=== PATIENT | male | born 1995 | race Caucasian/White ===

== ENCOUNTER 2024-07-22 18:14 | Emergency (ER) | payer MEDICAID, SELFPAY ==
--- NOTE | ~2024-07-22 | XR_ITS ---
EXAMINATION: XR THORACIC SPINE CLINICAL INFORMATION: Pain status post injury COMPARISON: None available. TECHNIQUE: 3 views of the thoracic spine were obtained. FINDINGS: There is no fracture or bone destruction seen and the vertebral alignment is normal. There is no disc space narrowing. There is no abnormality of the paraspinal soft tissues. XR/XR thoracic spine 3V IMPRESSION: Unremarkable examination. Electronically signed by: Jean-Pierre Mcdaams DO 07/22/2024 09:17 PM EDT
--- NOTE | ~2024-07-22 | XR_ITS ---
EXAMINATION: XR SHOULDER, RIGHT CLINICAL INFORMATION: Pain COMPARISON: None available. TECHNIQUE: AP external rotation, Grashey, scapular Y, and axillary views of the right shoulder. FINDINGS: The bones and soft tissues are normal. No fracture. Glenohumeral and acromioclavicular alignment is anatomic with normal joint space. No abnormal soft tissue calcifications. XR/XR shoulder RT min 2V IMPRESSION: Normal right shoulder. Electronically signed by: Jean-Pierre Mcadams DO 07/22/2024 09:15 PM EDT
--- NOTE | ~2024-07-22 | CT_ITS ---
EXAMINATION: CT CERVICAL SPINE WITHOUT CONTRAST CLINICAL INFORMATION: Pain status post seizure COMPARISON: None TECHNIQUE: Multidetector CT of the cervical spine was performed without intravenous contrast. Reformatted axial, coronal and sagittal images were reviewed. This CT examination was performed using dose optimization techniques as appropriate, variously including the following: *Automated exposure control *Adjustment of mA and/or kV according to patient size (this includes techniques or standardized protocols for targeted exams where dose is matched to indication/reason for exam; i.e. extremities or head) *Use of iterative reconstruction technique DLP: 511 mGy-cm FINDINGS: There is no fracture, malalignment or prevertebral soft tissue abnormality seen in the cervical spine. There is no abnormal widening of the predental space, separation of the lateral masses of C1 or facet joint distraction. Groundglass appearance, prominent trabeculae, and some endosteal scalloping involving the C2 articular pillar and posterior elements (right greater than left). No significant central canal or neuroforaminal stenosis. Vertebral body and intervertebral disc height are normal. The visualized portions of the brain and lung parenchyma are unremarkable. CT/CT cervical spine wo IV con IMPRESSION: 1. No acute fracture or malalignment of the cervical spine. 2. 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 Electronically signed by: Jean-Pierre Mcadams DO 07/22/2024 10:00 PM EDT
--- NOTE | 2024-07-22 18:55 | ED_ITS ---
HPI - Neck Pain/Injury General Chief Complaint: Neck Pain/Injury Stated Complaint: neck/back stiffness and pain Time Seen by Provider: 07/22/24 23:05 Source: patient Mode of arrival: ambulatory Limitations: no limitations History of Present Illness ED Provider: Dr. Garza HPI Narrative: Patient is a 29yo male with a seizure disorder who presents with neck, back and shoulder pain after having a seizure on Saturday. Patient states that he usually remembers to take his tegretol and dilantin, did not take it this morning. Related Data Previous Rx's ?Medication ?Instructions ?Recorded cyclobenzaprine 10 mg tablet 10 mg PO TID #10 tabs 07/22/24 naproxen 500 mg tablet (Naprosyn) 500 mg PO BID #20 tabs 07/22/24 Allergies Allergy/AdvReac Type Severity Reaction Status Date / Time No Known Allergies Allergy Verified 07/22/24 18:59 Review of Systems 2 Review of Systems: Yes all other systems are reviewed and are negative Neurologic: Denies Sensory deficit (Neuro) [facility] Social History Social History Advance Directives: No Advance Directives Information Provided: No Physical Exam 2 Vital Signs: Vital Signs: Last Vital Signs Temp 0 F L 07/22/24 23:41 Pulse 0 L 07/22/24 23:41 Resp 16 07/22/24 23:41 BP 0/0 L 07/22/24 23:41 Pulse Ox 0 L 07/22/24 23:41 O2 Del Method Room Air 07/22/24 22:31 BMI result Body Mass Index 28.8 Const: General: healthy appearing Nutritional Appearance: average body habitus Orientation/consciousness: oriented to person and patient oriented x3 Limitations: no limitations HEENT: Head: Yes normal to inspection Ears: external ears normal General nose exam: Normal external nose present Mouth: Normal oral and palatal mucosa present and oropharynx normal Throat: Yes posterior oropharynx normal Eyes: General: appearance normal, both eyes and all related structures Neck: Other: diffuse pain Neck: Yes normal visual inspection Chest: Chest palpation & inspection: normal inspection of the chest Resp: Auscultation: clear to auscultation bilaterally Cardio: Jugular venous distension: no JVD Rate: regular rate Rhythm: r egular rhythm Heart sounds: S1 normal heart sound present and S2 normal heart sound present GI: Inspection: Yes normal to inspection Palpation (GI): Soft to palpation, nontender and No hepatosplenomegaly present Auscultation: normal bowel sounds Back/Spine/Pelvis: Other: neck and lumbar spine tenderness decreased range of motion. Skin: General skin exam: no rashes or lesions noted Neuro: General: oriented to person and patient oriented x3 Cranial nerves: Yes CN's II-XII intact bilaterally Motor exam (neuro): 5/5 motor strength present throughout Sensory Exam: No Sensory deficit (Neuro) Extrem: General: Yes normal to inspection Psych: Appearance: grossly normal Course Course Course Narrative: This is a Rapid Medical Exam performed in triage by Karen Wallace PA-C. Full HPI, ROS and PE to be performed by primary ED provider. 29 yo Mw/pmhx epilepsy presenting to the ED c/o right sided neck pain/stiffness and R upper back/shoulder pain x yesterday. Admits had seizure on Saturday, reports compliance with antiepileptics. Last seizure about 3 months ago.. Denies hitting head during seizure per . +headache since incident. Denies vision change/loss. States takes Dilantin and oxy carbamazepine PE: +neck stiffness, + right-sided neck paraspinal reproducible tenderness and right trapezius muscle tenderness. Plan: Labs, UA, XRs & CT Reevaluation(s) Reevaluation #1: CT of neck normal, shoulder xray normal, lumbar spine normal, will start tegretol dilantin give NSAIDs and flexeril Time: 23:24 Medications Administered Discontinued Medications Generic Name Dose Route Start Last Admin Trade Name Rusty PRN Reason Stop Dose Admin Carbamazepine 200 mg 07/22/24 23:12 07/22/24 23:34 Carbamazepine 200 Mg Tablet PO 07/22/24 23:13 200 mg ONCE ONE Administration Cyclobenzaprine HCl 10 mg 07/22/24 23:17 07/22/24 23:34 Cyclobenzaprine Hcl 10 Mg Tablet PO 07/22/24 23:18 10 mg ONCE ONE Administration Ketorolac Tromethamine 60 mg 07/22/24 23:17 07/22/24 23:34 Ketorolac Tromethamine 60 Mg/2 Ml Vial IM 07/22/24 23:18 60 mg ONCE ONE Administration Phenytoin Sodium 500 mg 07/22/24 23:12 07/22/24 23:34 Phenytoin Sodium Extended 100 Mg Capsule PO 07/22/24 23:13 500 mg ONCE ONE Administration Medical Decision Making Differential Diagnosis Differential Diagnoses: The differential diagnosis associated with the presentation includes (seizure, medication non compliance, neck strain, back strain, shoulder pain) Admission/Observation Consideration of admission/observation: Escalation of care including admission/observation considered (upon arrival admission was considered) Lab Data 07/22/24 20:00 07/22/24 20:00 Labs: Lab Results 07/22/24 Range/Units 20:00 WBC 5.5 (4.8-10.8) X10*3/uL RBC 4.51 L (4.60-5.80) X10*6/uL Hgb 14.5 (14.0-18.0) g/dl Hct 41.8 L (42.0-52.0) % MCV 92.7 (80.0-98.0) fL MCH 32.2 (27.0-33.0) pg MCHC 34.7 (31.0-36.0) g/dl RDW 12.3 (11.0-16.0) % Plt Count 200 (160-400) X10*3/uL MPV 11.5 (9.4-12.4) fL Immature Gran % (Auto) 0.2 (0.0-0.4) % Neut % (Auto) 25.5 L (45-73) % Lymph % (Auto) 63.6 H (20-40) % [place] % (Auto) 5.6 (2-11) % Eos % (Auto) 4.6 H (0-4) % Baso % (Auto) 0.5 (0-2) % Lymph # (Auto) 3.5 (1.2-4.9) X10*3/uL [place] # (Auto) 0.3 (0.1-1.2) X10*3/uL Eos # (Auto) 0.3 (0.0-0.4) X10*3/uL Baso # (Auto) 0.0 (0.0-0.2) X10*3/uL Abs Immat Gran (auto) 0.01 (0.00-0.03) X10*3/uL Absolute Neuts (auto) 1.4 L (2.0-8.3) x10*3/uL Absolute Nucleated RBC 0.000 (0.0-0.012) X10*3/uL Nucleated RBC % (auto) 0.0 (0.0-0.2) /100WBC Smear Tech's Comments VERIFIED Sodium 141 (135-145) mmol/L Potassium 3.5 (3.3-5.1) mmol/L Chloride 108 (96-108) mmol/L Carbon Dioxide 24 (22-29) mmol/L Anion Gap 13 (12-20) BUN 12 (9-16) mg/dL Creatinine 0.86 (0.5-1.4) mg/dL Estim Creat Clear Calc 154.0 Estimated GFR > 60 Random Glucose 72 (60-115) mg/dL Calcium 9.4 (8.4-10.2) mg/dL Magnesium 2.2 (1.6-2.6) mg/dL Total Bilirubin 0.6 (0.0-1.0) mg/dL Direct Bilirubin 0.2 (0.0-0.5) mg/dL AST 16 (5-37) U/L ALT 21 (0-40) U/L Alkaline Phosphatase 54 (39-117) U/L Total Protein 7.1 (6.5-8.0) g/dL Albumin 4.3 (3.5-5.0) g/dL Urine Color Yellow Urine Appearance Clear Urine pH 6.0 (5.0-9.0) Ur Specific [place] 1.025 (1.005-1.025) Urine Protein Negative (Neg-Trace) mg/dL Urine Glucose (UA) Negative (Negative) mg/dL Urine Ketones Negative (Negative) mg/dL Urine Blood Negative (Negative) Urine Nitrite Negative (Negative) Ur Leukocyte Esterase Negative (Negative) Urine Opiates Screen Not Detected (Not Detect) Ur Buprenorphine Scrn Not Detected (Not Detect) ng/mL Ur Oxycodone Screen Not Detected (Not Detect) ng/mL Urine Methadone Screen Not Detected (Not Detect) ng/mL Urine Fentanyl Screen Not Detected (Not Detect) Ur Barbiturates Screen Not Detected (Not Detect) Phenytoin < 1.8 L* (10.0-20.0) ug/mL Carbamazepine < 2.0 L* (5.0-12.0) mcg/mL Ur Phencyclidine Scrn Not Detected (Not Detect) Ur Amphetamines Screen Not Detected (Not Detect) U Benzodiazepines Scrn Not Detected (Not Detect) Urine Cocaine Screen Not Detected (Not Detect) U Marijuana (THC) Screen POSITIVE H (Not Detect) Independent Interpretation I performed an independent interpretation of an: Plain X-Ray (no fracture) and CT Scan (no fracture or subluxation) Discharge Plan Discharge Clinical Impression: Strain of neck muscle, Acute lumbar myofascial strain, Seizure disorder Patient Disposition: Home, Self-Care Instructions: Low Back Strain (ED), Acute Low Back Pain (ED), Cervical Sprain (ED), Recurrent Seizures in Adults (ED) Prescriptions: New cyclobenzaprine 10 mg tablet 10 mg PO TID Qty: 10 0RF naproxen [Naprosyn] 500 mg tablet 500 mg PO BID Qty: 20 0RF Referrals: Physician,Unknown J [Primary Care Provider] - 5 days Interventions: ED Discharge Assessment Last Done: 07/22/24 23:41 Discharge Date/Time: 07/22/24 23:43 Print Language: Kyrgyz
[2024-07-22 18:56] VITALS: BP 136/86; PULSE 77; RESP 18; TEMP 36.6; O2SAT 99; BMI 28.8
--- NOTE | 2024-07-22 19:30 | MHC.EDTECH ---
This tech called patient at [phone] to obtain labs,patient was not in the waiting room,will re-attempt
--- NOTE | 2024-07-22 19:45 | MHC.EDTECH ---
Called a second time for labs at 194,patient was not in the waiting room.
--- NOTE | 2024-07-22 20:02 | MHC.EDTECH ---
Patient brought into triage area,labs and urine obtained and sent to lab
[2024-07-22 20:15] LABS: Basophils Percent Auto 0.5 % (0-2); Eosinophils Absolute Auto 0.3 X10*3/uL (0.0-0.4); Eosinophils Percent Auto 4.6 % (0-4); Hematocrit 41.8 % (42.0-52.0); Hemoglobin 14.5 g/dl (14.0-18.0); Imm Gran Abs Auto 0.01 X10*3/uL (0.00-0.03); Imm Gran Pct Auto 0.2 % (0.0-0.4); Lymphocytes Absolute Auto 3.5 X10*3/uL (1.2-4.9); Lymphocytes Percent Auto 63.6 % (20-40); MANUAL DIFF FLAG SCAN; Mean Corpuscular HGB Conc 34.7 g/dl (31.0-36.0); Mean Corpuscular Hemoglobin 32.2 pg (27.0-33.0); Mean Corpuscular Volume 92.7 fL (80.0-98.0); Mean Platelet Volume 11.5 fL (9.4-12.4); Monocytes Absolute Auto 0.3 X10*3/uL (0.1-1.2); Monocytes Percent Auto 5.6 % (2-11); Neutrophils Absolute Auto 1.4 x10*3/uL (2.0-8.3); Neutrophils Percent Auto 25.5 % (45-73); Platelet Count 200 X10*3/uL (160-400); Red Blood Count 4.51 X10*6/uL (4.60-5.80); Red Cell Distribution Width 12.3 % (11.0-16.0); SCAN SMEAR FLAG 1; White Blood Count 5.5 X10*3/uL (4.8-10.8)
[2024-07-22 20:22] LABS: Appearance Urine Clear; Color Urine Yellow; Glucose Urine UA Negative (Negative); Leukocyte Esterase Urine Negative (Negative); Nitrite Urine Negative (Negative); Specific Gravity - Urine 1.025 (1.005-1.025); Urine Blood Negative (Negative); Urine Ketones Negative (Negative); Urine Protein Negative (Neg-Trace)
[2024-07-22 20:31] LABS: Alanine Aminotransferase 21 U/L (0-40); Albumin Level 4.3 g/dL (3.5-5.0); Alkaline Phosphatase 54 U/L (39-117); Anion Gap 13 (12-20); Aspartate Amino Transferase 16 U/L (5-37); Bilirubin Direct 0.2 mg/dL (0.0-0.5); Bilirubin Total 0.6 mg/dL (0.0-1.0); Blood Urea Nitrogen 12 mg/dL (9-16); Calcium 9.4 mg/dL (8.4-10.2); Carbon Dioxide 24 mmol/L (22-29); Chloride 108 mmol/L (96-108); Estimated Glomerular Filt Rate > 60; Glucose Random 72 mg/dL (60-115); Magnesium 2.2 mg/dL (1.6-2.6); Potassium 3.5 mmol/L (3.3-5.1); Sodium 141 mmol/L (135-145); Total Protein 7.1 g/dL (6.5-8.0)
[2024-07-22 20:32] LABS: Amphetamine Screen Urine Not Detected (Not Detect); Barbiturates, Urine Not Detected (Not Detect); Benzodiazepines Screen Urine Not Detected (Not Detect); Buprenorphine Scr Not Detected (Not Detect); Cannabinoid Screen Urine POSITIVE (Not Detect); Cocaine Screen Urine Not Detected (Not Detect); Fentanyl, urine Not Detected (Not Detect); Methadone Screen, Urine Not Detected (Not Detect); Opiate Screen Urine Not Detected (Not Detect); Oxycodone Screen Urine Not Detected (Not Detect); Phencyclidine Screen Urine Not Detected (Not Detect)
[2024-07-22 20:35] LABS: SLIDE REVIEW VERIFIED
[2024-07-22 20:38] LABS: Carbamazepine Tegretol < 2.0 mcg/mL (5.0-12.0); Phenytoin Dilantin < 1.8 ug/mL (10.0-20.0)
[2024-07-22 21:34] VITALS: BP 119/65; PULSE 64; RESP 16; TEMP 36.3; O2SAT 99
[2024-07-22 22:31] VITALS: BP 140/93; PULSE 92; RESP 16; TEMP 36.6; O2SAT 100
[2024-07-22] MEDS: Cyclobenzaprine HCl 10 MG TABLET PO (23:34)
[2024-07-22] MEDS: carBAMazepine 200 MG TABLET PO (23:34)
[2024-07-22] MEDS: Phenytoin Sodium Extended 100 MG CAPSULE 500 MG PO (23:34)
[2024-07-22] MEDS: Ketorolac Tromethamine 60 MG/2 ML VIAL IM (23:34)
[2024-07-22 23:41] VITALS: BP 0/0; PULSE 0; RESP 16; TEMP -17.7; TEMP 0; O2SAT 0
== END 2024-07-22 23:43 | disposition home or self-care (01) ==
PROVIDERS: Physician Assistant; Emergency Provider Emergency Medicine
DX: G40.909 Epilepsy, unspecified, not intractable, without status epilepticus (principal); S16.1XXA Strain of muscle, fascia and tendon at neck level, initial encounter; S39.012A Strain of muscle, fascia and tendon of lower back, initial encounter; X58.XXXA Exposure to other specified factors, initial encounter; Y93.89 Activity, other specified; Y92.9 Unspecified place or not applicable; Y99.9 Unspecified external cause status; Z79.899 Other long term (current) drug therapy
CPT/HCPCS: 36415; 72072; 72125; 73030; 80048; 80076; 80156; 80185; 80307; 81003; 83735; 85025; 96372; 99283; 99284; J1885

== ENCOUNTER 2025-03-22 13:11 | Emergency (ER) | payer MEDICAID, SELFPAY ==
--- NOTE | ~2025-03-22 | XR_ITS ---
CLINICAL HISTORY: pain Chest Radiographs, 2 views Comparison: None Findings: No cardiomegaly. Normal mediastinal contours. No pneumothorax. No opacity. No pleural effusion. Normal upper abdomen. No acute fracture. Impression: No acute findings. This document has been electronically signed by: Chantel Bhagat MD on 03/22/2025 14:40:24
[2025-03-22 13:19] VITALS: BP 136/71; PULSE 85; RESP 18; TEMP 36.3; O2SAT 98; BMI 31.5
--- NOTE | 2025-03-22 13:22 | ECG_ITS ---
Test Reason : COUGH Blood Pressure : */* mmHG Vent. Rate : 83 BPM Atrial Rate : 83 BPM P-R Int : 174 ms QRS Dur : 94 ms QT Int : 362 ms P-R-T Axes : 47 12 28 degrees QTcB Int : 425 ms Normal sinus rhythm Normal ECG No previous ECGs available Referred By: Handy Uribe Electronically Signed By: Heladio Betts
--- NOTE | 2025-03-22 13:22 | ED.GENADULT ---
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 Also complaining of pain to in area of his surgery which is worse with coughing episodes. Cough nonproductive. Denies fever, hemoptysis. Denies chest pain or palpitations. Denies recent calf pain or swelling. MD complaint: cough, abdominal pain Onset (ago): week(s) Related Data Previous Rx's ?Medication ?Instructions ?Recorded cyclobenzaprine 10 mg tablet 10 mg PO TID #10 tabs 07/22/24 naproxen 500 mg tablet (Naprosyn) 500 mg PO BID #20 tabs 07/22/24 albuterol sulfate 90 mcg/actuation 2 puff inhalation Q4-6H PRN 03/22/25 aerosol inhaler shortness of breath or wheezing #6.7 grams benzonatate 100 mg capsule 100 mg PO TID PRN cough #20 caps 03/22/25 prednisone 20 mg tablet 20 mg PO DAILY #5 tabs 03/22/25 Allergies Allergy/AdvReac Type Severity Reaction Status Date / Time No Known Allergies Allergy Verified 03/22/25 13:22 Review of Systems Review of Systems: As per HPI. Yes all other systems are reviewed and are negative Constitutional: Constitutional: Reports as per HPI [facility] Social History Social History Advance Directives: No Advance Directives Information Provided: Yes Do you have a plan to hurt others: No Plan Physical Exam ED Vital Signs: Vital Signs - 24 hr 03/22/25 13:19 03/22/25 15:05 Temperature 97.4 F 98.2 F Pulse Rate 85 70 Respiratory Rate 18 15 Blood Pressure 136/71 109/64 Pulse Oximetry 98 99 Oxygen Delivery Method Room Air Room Air BMI result Body Mass Index 31.5 Vital signs have been reviewed and appear to be correct. Blood pressure normal. Heart rate normal. Respiratory rate normal. Temperature normal. Oxygen saturation normal. Const General: cooperative, healthy appearing and no acute distress Orientation/consciousness: oriented to person, oriented to place, oriented to time and patient oriented x3 Limitations: no limitations HENLA Head: Yes normocephalic and Yes atraumatic Ears: external ears normal General nose exam: Normal external nose present Face and sinus: Yes face symmetric Mouth: oropharynx normal and moist mucous membranes Throat: Yes uvula midline Eyes Pupils: Equal, round and reactive pupils present Neck Neck: Yes normal visual inspection and Yes supple Resp Effort & Inspection: normal respiratory effort and able to speak in complete sentences Auscultation: clear to auscultation bilaterally and wheezes scattered wheezes Cardio Rate: regular rate Rhythm: regular rhythm Heart sounds: S1 normal heart sound present and S2 normal heart sound present GI Other: several small, well-healed surgical scars to abdomen Inspection: Yes scar Palpation (GI): Soft to palpation, nontender, no guarding, no hernias and No Rebound tenderness present Auscultation: normoactive bowel sounds General: Yes no CVA tenderness Back/Spine/Pelvis Back: no CVA tenderness Skin General skin exam: elasticity normal and turgor normal Neuro General: oriented to person, oriented to place, oriented to time, patient oriented x3, moves all extremities, no focal motor deficits and CN's II-XI intact bilaterally Cranial nerves: Yes Equal, round and reactive pupils present Cognition (Neuro): normal cognition Extrem General: Yes full ROM, Yes no pedal edema and Yes no calf tenderness Psych Mental Status: mental status grossly normal Affect: normal affect Thought process: Normal thought process present Course Course Course Narrative: RME, this is a rapid medical exam performed by Gerald Uribe please refer to primary provider for complete H&P- 29-year-old male past medical history significant for 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 On exam patient is awake, A+Ox3, VS WNL, afebrile, normal neurological exam without focal deficits, physical exam findings as above. Given reported symptoms and physical exam findings, initial differential includes but is not limited to viral illness, COVID, flu, RSV, asthma exacerbation, pneumonia. Unlikely complication of recent hernia repair as abdomen is soft and nontender, no palpable mass. Unlikely PE, PERC 0. Labs unremarkable. Viral serology negative. X-ray chest notable for no evidence of pneumonia. My interpretation is in agreement with the radiologist's interpretation. Discussed with patient that symptoms are likely due to viral URI. Will send prescription for prednisone, albuterol inhaler, benzonatate. Will also provide patient with a spacer as he does not have 1 at home. Advised patient to use a pillow for splinting while he is coughing to protect his abdomen. Follow up with PCP as needed. Return precautions discussed. Patient verbalized understanding of and agreement with plan. Differential Diagnosis Differential Diagnoses: The differential diagnosis associated with the presentation includes As per [facility] Admission/Observation Consideration of admission/observation: Escalation of care including admission/observation considered Patient would have been admitted to the hospital had their work up had any findings where hospital admission was appropriate and their clinical presentation warranted hospital admission. Lab Data [facility] Lab Attestation statement: I reviewed the patient's lab results. as per [facility] 03/22/25 13:50 03/22/25 13:50 Labs: Lab Results 03/22/25 Range/Units 13:50 WBC 3.9 L (4.8-10.8) X10*3/uL RBC 5.08 (4.60-5.80) X10*6/uL Hgb 15.8 (14.0-18.0) g/dl Hct 47.0 (42.0-52.0) % MCV 92.5 (80.0-98.0) fL MCH 31.1 (27.0-33.0) pg MCHC 33.6 (31.0-36.0) g/dl RDW 13.0 (11.0-16.0) % Plt Count 197 (160-400) X10*3/uL MPV 11.7 (9.4-12.4) fL Immature Gran % (Auto) 0.0 (0.0-0.4) % Neut % (Auto) 32.9 L (45-73) % Lymph % (Auto) 58.0 H (20-40) % [place] % (Auto) 3.4 (2-11) % Eos % (Auto) 5.4 H (0-4) % Baso % (Auto) 0.3 (0-2) % Lymph # (Auto) 2.3 (1.2-4.9) X10*3/uL [place] # (Auto) 0.1 (0.1-1.2) X10*3/uL Eos # (Auto) 0.2 (0.0-0.4) X10*3/uL Baso # (Auto) 0.0 (0.0-0.2) X10*3/uL Abs Immat Gran (auto) 0.00 (0.00-0.03) X10*3/uL Absolute Neuts (auto) 1.3 L (2.0-8.3) x10*3/uL Absolute Nucleated RBC 0.000 (0.0-0.012) X10*3/uL Nucleated RBC % (auto) 0.0 (0.0-0.2) /100WBC Sodium 142 (135-145) mmol/L Potassium 3.5 (3.3-5.1) mmol/L Chloride 107 (96-108) mmol/L Carbon Dioxide 25 (22-29) mmol/L Anion Gap 14 (12-20) BUN 8 L (9-16) mg/dL Creatinine 0.90 (0.5-1.4) mg/dL Estim Creat Clear Calc 149.1 Estimated GFR > 60 Random Glucose 110 (60-115) mg/dL Calcium 9.3 (8.4-10.2) mg/dL Total Bilirubin 0.5 (0.0-1.0) mg/dL AST 30 (5-37) U/L ALT 44 H (0-40) U/L Alkaline Phosphatase 66 (39-117) U/L Troponin I High Sens < 2.7 (<3.5-35.0) ng/L Total Protein 7.6 (6.5-8.0) g/dL Albumin 4.7 (3.5-5.0) g/dL Lipase 15 (8-78) U/L Influenza Type A (PCR) NEGATIVE (Negative) Influenza Type B (PCR) NEGATIVE (Negative) RSV RNA Qual (PCR) NEGATIVE (Negative) SARS-CoV-2 RNA (RT-PCR) NEGATIVE (Negative) Independent Interpretation I performed an independent interpretation of an: EKG (Normal sinus rhythm, rate 83 beats per minute, normal DE interval and QTC) and Plain X-Ray Interpretation: No evidence of pneumonia on cxr. Radiology Impression Discussion of test interpretation with radiology: I have reviewed the radiologist's reading. Radiologist Impression: Chest Radiographs, 2 views Comparison: None Findings: No cardiomegaly. Normal mediastinal contours. No pneumothorax. No opacity. No pleural effusion. Normal upper abdomen. No acute fracture. Impression: No acute findings. External Record Review External record reviewed: Inpatient record, Office record and Outpatient record Prescription Management I considered prescription management with: Other Discharge Plan Discharge Clinical Impression: Viral upper respiratory infection Patient Disposition: Home, Self-Care Instructions: Upper Respiratory Infection (DC), Viral Syndrome (ED) Additional Instructions: You were evaluated in the emergency department today for cough. Your Covid, flu, RSV tests were all negative. Your chest x-ray did not show evidence of pneumonia. Your labs were reassuring. Your symptoms are likely related to a viral illness which will resolve on its own with time and rest. You should ensure adequate fluid intake, and can use Tylenol 650 mg or ibuprofen 600 mg every 6 hours as needed for pain or discomfort. We also recommend using over the counter nasal saline spray to thin your mucous. You are being prescribed a course of prednisone which is a steroid to decrease inflammation. You are being prescribed an albuterol inhaler for shortness of breath, use this with a spacer provided to you in the emergency department. You are being prescribed benzonatate for cough. KEEP THIS MEDICATION OUT OF THE REACH OF CHILDREN. We recommend that you splint your abdomen with a pillow while coughing. Please follow-up with your primary care provider this week. Return to the emergency department if you develop chest pain, worsening shortness of breath, difficulty swallowing, fever 100.4? F or greater or any other concerning symptoms. Prescriptions: New albuterol sulfate 90 mcg/actuation HFA aerosol inhaler 2 puff inhalation Q4-6H PRN (Reason: shortness of breath or wheezing) Qty: 6.7 0RF prednisone 20 mg tablet 20 mg PO DAILY Qty: 5 0RF benzonatate 100 mg capsule 100 mg PO TID PRN (Reason: cough) Qty: 20 0RF No Action cyclobenzaprine 10 mg tablet 10 mg PO TID Qty: 10 0RF naproxen [Naprosyn] 500 mg tablet 500 mg PO BID Qty: 20 0RF Print Language: Maori
[2025-03-22 13:56] LABS: MANUAL DIFF FLAG NO
[2025-03-22 13:58] LABS: Basophils Percent Auto 0.3 % (0-2); Eosinophils Absolute Auto 0.2 X10*3/uL (0.0-0.4); Eosinophils Percent Auto 5.4 % (0-4); Hemoglobin 15.8 g/dl (14.0-18.0); Lymphocytes Absolute Auto 2.3 X10*3/uL (1.2-4.9); Mean Corpuscular HGB Conc 33.6 g/dl (31.0-36.0); Mean Corpuscular Hemoglobin 31.1 pg (27.0-33.0); Mean Corpuscular Volume 92.5 fL (80.0-98.0); Mean Platelet Volume 11.7 fL (9.4-12.4); Monocytes Absolute Auto 0.1 X10*3/uL (0.1-1.2); Monocytes Percent Auto 3.4 % (2-11); Neutrophils Absolute Auto 1.3 x10*3/uL (2.0-8.3); Neutrophils Percent Auto 32.9 % (45-73); Platelet Count 197 X10*3/uL (160-400); Red Blood Count 5.08 X10*6/uL (4.60-5.80); White Blood Count 3.9 X10*3/uL (4.8-10.8)
[2025-03-22 14:11] LABS: Alanine Aminotransferase 44 U/L (0-40); Albumin Level 4.7 g/dL (3.5-5.0); Alkaline Phosphatase 66 U/L (39-117); Anion Gap 14 (12-20); Aspartate Amino Transferase 30 U/L (5-37); Bilirubin Total 0.5 mg/dL (0.0-1.0); Blood Urea Nitrogen 8 mg/dL (9-16); Calcium 9.3 mg/dL (8.4-10.2); Carbon Dioxide 25 mmol/L (22-29); Chloride 107 mmol/L (96-108); Creatinine Clr Calc Pharmacy 149.1; Estimated Glomerular Filt Rate > 60; Glucose Random 110 mg/dL (60-115); Lipase 15 U/L (8-78); Potassium 3.5 mmol/L (3.3-5.1); Sodium 142 mmol/L (135-145); Total Protein 7.6 g/dL (6.5-8.0)
[2025-03-22 14:19] LABS: Troponin-I High Sensitivity < 2.7 ng/L (<3.5-35.0)
[2025-03-22 14:46] LABS: Influenza A PCR NEGATIVE (Negative); Influenza B PCR NEGATIVE (Negative); Resp Syncy Virus RNA Qual PCR NEGATIVE (Negative); SARS COV2 PCR INHOUSE NEGATIVE (Negative)
[2025-03-22 15:05] VITALS: BP 109/64; PULSE 70; RESP 15; TEMP 36.8; O2SAT 99
[2025-03-22 15:32] LABS: Appearance Urine Clear; Color Urine Yellow; Glucose Urine UA Negative (Negative); Leukocyte Esterase Urine Negative (Negative); Nitrite Urine Negative (Negative); Urine Blood Negative (Negative); Urine Ketones Negative (Negative); Urine Protein Negative (Neg-Trace)
[2025-03-22 15:37] LABS: Bacteria Urine None Seen (None Seen); Hyaline Casts Urine 0-2 /LPF (0-2); RBC Urine 0-2 /HPF (0-2); Squamous Epithelial Cell Urine 0-2 /HPF (0-2); WBC Urine 0-5 /HPF (0-5)
[2025-03-22 15:48] VITALS: BP 109/64; PULSE 70; RESP 15; TEMP 36.8; O2SAT 99
== END 2025-03-22 15:49 | disposition home or self-care (01) ==
PROVIDERS: Physician Assistant; Emergency Provider Emergency Medicine; PCP Dentist General Practice
DX: J06.9 Acute upper respiratory infection, unspecified (principal); R06.02 Shortness of breath; R05.9 Cough, unspecified; Z03.818 Encounter for observation for suspected exposure to other biological agents ruled out; J45.909 Unspecified asthma, uncomplicated; Z79.899 Other long term (current) drug therapy
CPT/HCPCS: 0241U; 71046; 80053; 81001; 83690; 84484; 85025; 93005; 99283; 99284

== ENCOUNTER → 2025-03-22 13:22 | Outpatient (BNV) | payer MEDICAID, SELFPAY | PROVIDERS: PCP Dentist General Practice; Visit Provider Radiology Diagnostic Radiology | DX: R07.9 Chest pain, unspecified (principal) | CPT/HCPCS: 71046 ==

== ENCOUNTER → 2025-03-22 13:22 | Outpatient (BNV) | payer MEDICAID, SELFPAY | PROVIDERS: Emergency Provider Emergency Medicine; PCP Dentist General Practice; Visit Provider Internal Medicine Cardiovascular Disease | DX: R05.9 Cough, unspecified (principal) | CPT/HCPCS: 93010 ==

== ENCOUNTER 2025-04-01 12:28 | Emergency (ER) | payer SELFPAY ==
--- NOTE | ~2025-04-01 | CT_ITS ---
EXAMINATION: CT CERVICAL SPINE WITHOUT CONTRAST CLINICAL INFORMATION: Seizure, head strike 2 days prior, neck pain. COMPARISON: 07/22/2024. TECHNIQUE: Spiral CT imaging of the cervical spine performed in axial plane without contrast. Multiplanar reformatted images were constructed from the axial data set. This CT examination was performed using dose optimization techniques as appropriate, variously including the following: *Automated exposure control *Adjustment of mA and/or kV according to patient size (this includes techniques or standardized protocols for targeted exams where dose is matched to indication/reason for exam; i.e. extremities or head) *Use of iterative reconstruction technique FINDINGS: CORONAL ALIGNMENT: -Normal. SAGITTAL ALIGNMENT: -Normal. C1-C2 AND CRANIOCERVICAL JUNCTION: -Intact and normally aligned. VERTEBRAL BODIES AND FACETS: -No fracture, compression deformity, or suspicious bone lesion, or traumatic subluxation. -Normal facet alignment bilaterally. No subluxations. DISCS: -Preserved at all levels. CENTRAL CANAL: -No evidence of high-grade central canal narrowing or large disc herniation allowing for modality limitations. PREVERTEBRAL AND PARAVERTEBRAL SOFT TISSUES: -No soft tissue swelling or edema. No abnormal fluid collection. -Normal thyroid. -Mildly prominent adenoidal soft tissues, consistent with reactive etiology. -Mild reactive appearing lymphadenopathy in the anterior and posterior cervical chains. LUNG APICES: -Clear bilaterally. CT/CT cervical spine wo IV con IMPRESSION: 1. No CT evidence of acute cervical spine fracture or injury. Electronically signed by: Jair Ortiz MD 04/01/2025 03:29 PM EDT
--- NOTE | ~2025-04-01 | CT_ITS ---
EXAMINATION: CT HEAD WITHOUT CONTRAST CLINICAL INFORMATION: Seizure. Head strike. COMPARISON: None available. TECHNIQUE: Contiguous axial imaging was performed from the skull base to vertex without intravenous administration of contrast. This CT examination was performed using dose optimization techniques as appropriate, variously including the following: *Automated exposure control *Adjustment of mA and/or kV according to patient size (this includes techniques or standardized protocols for targeted exams where dose is matched to indication/reason for exam; i.e. extremities or head) *Use of iterative reconstruction technique FINDINGS: There is no evidence of intracranial hemorrhage or extra-axial fluid collection. There is no mass effect, or edema. No CT evidence of acute territorial infarct. Ventricles, sulci, and cisterns are normal in size and configuration for patient age. No hydrocephalus. No midline shift. Negative hyperdense MCA sign. Negative insular ribbon sign. No significant white matter abnormality. Normal pituitary. Globes and orbital contents image normally. No extracranial soft tissue abnormalities. The paranasal sinuses, mastoid air cells, and tympanic cavities are normally aerated. No suspicious bony abnormalities. There are no acute fractures evident. CT/CT head/brain wo IV con IMPRESSION: No acute intracranial abnormality. No fracture evident. Electronically signed by: Jair Ortiz MD 04/01/2025 03:24 PM EDT
--- NOTE | ~2025-04-01 | XR_ITS ---
EXAMINATION: XR SHOULDER, RIGHT CLINICAL INFORMATION: Fall/seizure 2 days ago COMPARISON: 07/22/2024. TECHNIQUE: AP external rotation, Grashey, scapular Y, and axillary views of the right shoulder. FINDINGS: Normal bone mineralization. No fracture, dislocation, or suspicious bone lesion. Normal alignment. The glenohumeral joint is normal. The AC joint is normal. There is a type II acromion. No undersurface spurring. The subacromial space is preserved. Remainder of the soft tissue and bony structures appear normal. XR/XR shoulder RT min 2V IMPRESSION: Normal right shoulder. Electronically signed by: Jair Ortiz MD 04/01/2025 01:47 PM EDT
[2025-04-01 12:48] VITALS: BP 124/91; PULSE 95; RESP 18; TEMP 36.8; O2SAT 96; BMI 28.9
--- NOTE | 2025-04-01 12:49 | ED_ITS ---
HPI - Seizure General Chief Complaint: General Medical Stated Complaint: Recent seizures, neck/back discomfort Time Seen by Provider: 04/01/25 15:57 Source: patient Mode of arrival: ambulatory Limitations: no limitations History of Present Illness ED Provider: Dr. Yao Mcgowan HPI Narrative: 29-year-old male with a history of seizures who presents emergency department for evaluation of neck and right shoulder pain after having a seizure 2 days prior. 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 You need to sign up for his insurance and lost his coverage . Because of this, he has tried to stretch out his anti seizure medication, oxcarbamazepine by reducing use dose. He states that he was seizure free for year however 2 days prior he had a seizure which caused him to strike his head and right shoulder. Since that time he has had severe pain in his right shoulder which is worse with movement as well as moderate right-sided neck pain which is worse with movement as well. He is also complaining of headache, chills but no fever, nonproductive cough, myalgias and arthralgias. The patient has been taking ibuprofen and Ultracet with no improvement his pain. Patient states that he can re-enroll in his insurance at the end of the month but does not have enough money to afford refilling his prescription for his antiseizure medications. Related Data Previous Rx's ?Medication ?Instructions ?Recorded cyclobenzaprine 10 mg tablet 10 mg PO TID #10 tabs 07/22/24 naproxen 500 mg tablet (Naprosyn) 500 mg PO BID #20 tabs 07/22/24 albuterol sulfate 90 mcg/actuation 2 puff inhalation Q4-6H PRN 03/22/25 aerosol inhaler shortness of breath or wheezing #6.7 grams benzonatate 100 mg capsule 100 mg PO TID PRN cough #20 caps 03/22/25 prednisone 20 mg tablet 20 mg PO DAILY #5 tabs 03/22/25 cyclobenzaprine 10 mg tablet 10 mg PO TID PRN pain, muscle 04/01/25 spasm #15 tabs oxcarbazepine 150 mg tablet 150 mg PO DAILY #30 tabs 04/01/25 oxycodone 5 mg tablet 5 mg PO Q4H PRN pain #12 tabs 04/01/25 Allergies Allergy/AdvReac Type Severity Reaction Status Date / Time No Known Allergies Allergy Verified 04/01/25 12:53 Review of Systems 2 Review of Systems: Yes all other systems are reviewed and are negative [facility] Social History Social History Unable to assess alcohol history related to: Unknown Use of substances other than those prescribed or required for medical reasons: Unknown Advance Directives: No Advance Directives Information Provided: Yes Physical Exam 2 Vital Signs: Vital Signs: Last Vital Signs Temp 98.5 F 04/01/25 17:35 Pulse 80 04/01/25 17:35 Resp 18 04/01/25 17:35 BP 121/59 L 04/01/25 17:35 Pulse Ox 99 04/01/25 17:35 O2 Del Method Room Air 04/01/25 17:35 BMI result Body Mass Index 28.9 Vital signs were normal Exam: General: Awake, alert in no distress Head: Normocephalic, atraumatic EENT: PERRL, Lids normal, sclera normal, conjunctiva normal, nose normal , ears normal, throat without erythema or exudates Neck: Supple, no adenopathy, tenderness palpation of the right trapezius muscle, no point tenderness palpation over the cervical vertebrae Lung: breath sounds symmetric, no wheezing, rales or rhonchi Chest: symmetric movement, nontender Heart: regular rate and rhythm, normal S1, S2 no murmurs or rubs Abdomen: soft, non-tender, nondistended, normal bowel sounds Back: no vertebral tenderness, no CVAT Extremities: no deformities, moves all extremities symmetrically, patient does have tenderness palpation of his right deltoid muscle with full range of motion of his shoulder Neuro: Awake, alert, oriented, normal speech, cranial nerves intact, moves all extremities symmetrically Psych: Pleasant, cooperative Course Course Course Narrative: This is a Rapid Medical Exam performed in triage by Karen Wallace PA-C. Full HPI, ROS and PE to be performed by primary ED provider. 29 yo M w/PMHx epilepsy presenting to the ED c/o seizure 2 night ago - was standing and fell +HS, now c/o R sided head pain/R neck/back pain x yesterday. denies N/V. Admits to taking less than Rx of his seizure meds for about 3wks. (Has been cutting in half to make Rx last longer - having issues with health insurance) PE: ambulating with steady gait, no focal deficits, ROM to neck limited secondary to pain. Plan: EKG, labs, UA, Head/C-spine CT, x-ray Medications Administered Discontinued Medications Generic Name Dose Route Start Last Admin Trade Name Rusty PRN Reason Stop Dose Admin Ketorolac Tromethamine 30 mg 04/01/25 16:49 04/01/25 16:59 Ketorolac Tromethamine 15 Mg/Ml Vial IVPUSH 04/01/25 16:50 30 mg ONCE STA Administration Oxycodone HCl 10 mg 04/01/25 16:49 04/01/25 17:08 Oxycodone Hcl Immed Release 5 Mg Tablet PO 04/01/25 16:50 10 mg ONCE ONE Administration Medical Decision Making Medical Decision Making [facility] Narrative: 29-year-old male with a history of seizures who presents emergency department for evaluation of neck and right shoulder pain after having a seizure 2 days prior. 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 You need to sign up for his insurance and lost his coverage . Because of this, he has tried to stretch out his anti seizure medication, oxcarbamazepine by reducing use dose. He states that he was seizure free for year however 2 days prior he had a seizure which caused him to strike his head and right shoulder. Since that time he has had severe pain in his right shoulder which is worse with movement as well as moderate right-sided neck pain which is worse with movement as well. He is also complaining of headache, chills but no fever, nonproductive cough, myalgias and arthralgias. vital signs were normal. Neck exam did reveal right-sided trapezius tenderness and right shoulder revealed deltoid tenderness a full range of motion of the shoulder. Differential diagnosis: Includes but is not limited to Closed head injury, skull fracture, intracranial bleed, cervical fracture, cervical strain, right shoulder contusion, right shoulder dislocation, right shoulder separation, viral syndrome, COVID-19, influenza, RSV, bronchitis Course: my independent interpretation patient's laboratory evaluation is as follows: CBC was normal. CMP was normal. COVID-19 was positive. X-rays of the right shoulder revealed no acute findings. CT head and C-spine revealed no acute findings. The patient's neck pain and shoulder pain or consistent with musculoskeletal injury and I did discuss this patient. Patient was advised to take Tylenol ibuprofen for pain and pain not relieved by these medications he was prescribed oxycodone. He was also given prescription for cyclobenzaprine for muscle pain and spasm his neck. The patient is COVID positive, he has been vaccinated and has COVID in the past therefore I do not think that needs specific treatment. patient was given printed and verbal instructions on COVID infection and he was advised to stay from or and was given a work note. Patient was also given Rx for oxcarpazipine 150 mg pills Admission/Observation Consideration of admission/observation: Escalation of care including admission/observation considered Yes Lab Data MDM Lab Attestation statement: I reviewed the patient's lab results. 04/01/25 13:07 04/01/25 13:07 Labs: Lab Results 04/01/25 04/01/25 Range/Units 13:07 17:11 WBC 4.5 L (4.8-10.8) X10*3/uL RBC 4.96 (4.60-5.80) X10*6/uL Hgb 15.7 (14.0-18.0) g/dl Hct 45.9 (42.0-52.0) % MCV 92.5 (80.0-98.0) fL MCH 31.7 (27.0-33.0) pg MCHC 34.2 (31.0-36.0) g/dl RDW 12.9 (11.0-16.0) % Plt Count 172 (160-400) X10*3/uL MPV 12.0 (9.4-12.4) fL Immature Gran % (Auto) 0.4 (0.0-0.4) % Neut % (Auto) 57.5 (45-73) % Lymph % (Auto) 32.2 (20-40) % [place] % (Auto) 7.5 (2-11) % Eos % (Auto) 2.2 (0-4) % Baso % (Auto) 0.2 (0-2) % Lymph # (Auto) 1.5 (1.2-4.9) X10*3/uL [place] # (Auto) 0.3 (0.1-1.2) X10*3/uL Eos # (Auto) 0.1 (0.0-0.4) X10*3/uL Baso # (Auto) 0.0 (0.0-0.2) X10*3/uL Abs Immat Gran (auto) 0.02 (0.00-0.03) X10*3/uL Absolute Neuts (auto) 2.6 (2.0-8.3) x10*3/uL Absolute Nucleated RBC 0.000 (0.0-0.012) X10*3/uL Nucleated RBC % (auto) 0.0 (0.0-0.2) /100WBC Sodium 141 (135-145) mmol/L Potassium 4.6 D (3.3-5.1) mmol/L Chloride 110 H (96-108) mmol/L Carbon Dioxide 26 (22-29) mmol/L Anion Gap 10 L (12-20) BUN 13 (9-16) mg/dL Creatinine 0.92 (0.5-1.4) mg/dL Estim Creat Clear Calc 140.2 Estimated GFR > 60 Random Glucose 111 (60-115) mg/dL Calcium 9.6 (8.4-10.2) mg/dL Magnesium 1.9 (1.6-2.6) mg/dL Total Bilirubin 0.6 (0.0-1.0) mg/dL Direct Bilirubin 0.2 (0.0-0.5) mg/dL AST 28 (5-37) U/L ALT 34 (0-40) U/L Alkaline Phosphatase 66 (39-117) U/L Total Protein 7.5 (6.5-8.0) g/dL Albumin 4.7 (3.5-5.0) g/dL Urine Color Yellow Urine Appearance Clear Urine pH 5.5 (5.0-9.0) Ur Specific [place] 1.015 (1.005-1.025) Urine Protein Negative (Neg-Trace) mg/dL Urine Glucose (UA) Negative (Negative) mg/dL Urine Ketones Negative (Negative) mg/dL Urine Blood Negative (Negative) Urine Nitrite Negative (Negative) Ur Leukocyte Esterase Negative (Negative) Influenza Type A (PCR) NEGATIVE (Negative) Influenza Type B (PCR) NEGATIVE (Negative) RSV RNA Qual (PCR) NEGATIVE (Negative) SARS-CoV-2 RNA (RT-PCR) POSITIVE A (Negative) Independent Interpretation I performed an independent interpretation of an: Plain X-Ray Interpretation: x-rays right shoulder and her value is follows: No acute fracture seen Radiology Impression Discussion of test interpretation with radiology: I have reviewed the radiologist's reading. Radiologist Impression: XR shoulder RT min 2V IMPRESSION: Normal right shoulder. Electronically signed by: Jair Ortiz MD 04/01/2025 01:[address] head/brain wo IV con IMPRESSION: No acute intracranial abnormality. No fracture evident. Electronically signed by: Jair Ortiz MD 04/01/2025 03:[address] CERVICAL SPINE WITHOUT CONTRAST IMPRESSION: 1. No CT evidence of acute cervical spine fracture or injury. Electronically signed by: Jair Ortiz MD 04/01/2025 03:29 PM EDT Prescription Management I considered prescription management with: Pain Medication ( oxycodone) and Other ( anti spasmodic: cyclobenzaprine, anti seizure medication: oxcarbazipine) Chronic Conditions Patient?s care impacted by: Other ( seizures) Discharge Plan Discharge Clinical Impression: Seizure, Fall, Contusion of right shoulder, Neck muscle strain, COVID-19 Patient Disposition: Home, Self-Care Additional Instructions: Your blood work was unremarkable. The CT scan of your head and cervical spine/neck did not reveal any broken bones. The x-ray of your right shoulder revealed no broken bones. Your shoulder pain and neck pain is caused by muscle strain and bruising to the muscles of your neck and shoulder. Take ibuprofen 200 mg pills, 2 pills every 6 hours as needed for pain. Take Tylenol (acetaminophen) 500 mg pills, 2 pills every 4-6 hours as needed for pain. For pain not relieved by ibuprofen or Tylenol take oxycodone 5 mg pills, 1 pill every 4 hours as needed for pain. Do not drive or work while taking this medication since they can cause sleepiness. Oxycodone is a narcotic medication that can be addicting. If you are concerned about addiction you can ask the pharmacist for less pills or do not get this prescription filled. Take Flexeril (cyclobenzaprine) 10 mg pills, 1 pill every 6-8 hours as needed for pain or spasm. This medication will make you sleepy. Do not drive or work while taking this medication. Your COVID test was positive. You should stay home and isolate for 3 days. Follow-up with your doctor in 2 days. Please return to the emergency department if your symptoms get worse or if you develop any symptoms that are concerning to you. Please see the return to work note Prescriptions: New cyclobenzaprine 10 mg tablet 10 mg PO TID PRN (Reason: pain, muscle spasm) Qty: 15 0RF oxycodone 5 mg tablet 5 mg PO Q4H PRN (Reason: pain) Qty: 12 0RF Rx Instructions: Partial Fill upon patient request. oxcarbazepine 150 mg tablet 150 mg PO DAILY Qty: 30 0RF No Action cyclobenzaprine 10 mg tablet 10 mg PO TID Qty: 10 0RF naproxen [Naprosyn] 500 mg tablet 500 mg PO BID Qty: 20 0RF albuterol sulfate 90 mcg/actuation HFA aerosol inhaler 2 puff inhalation Q4-6H PRN (Reason: shortness of breath or wheezing) Qty: 6.7 0RF prednisone 20 mg tablet 20 mg PO DAILY Qty: 5 0RF benzonatate 100 mg capsule 100 mg PO TID PRN (Reason: cough) Qty: 20 0RF Stand Alone Forms: Work/School Release Interventions: ED Discharge Assessment Last Done: 04/01/25 17:35 Discharge Date/Time: 04/01/25 17:39 Print Language: Urdu
--- NOTE | 2025-04-01 12:52 | ECG_ITS ---
Test Reason : SEIZURES Blood Pressure : */* mmHG Vent. Rate : 88 BPM Atrial Rate : 88 BPM P-R Int : 162 ms QRS Dur : 92 ms QT Int : 330 ms P-R-T Axes : 48 4 29 degrees QTcB Int : 399 ms Normal sinus rhythm Normal ECG When compared with ECG of 22-Mar-2025 13:36, No significant change was found Referred By: Karen Wallace Electronically Signed By: SABIHA JUARES
[2025-04-01 13:16] LABS: MANUAL DIFF FLAG NO
[2025-04-01 13:18] LABS: Basophils Percent Auto 0.2 % (0-2); Eosinophils Absolute Auto 0.1 X10*3/uL (0.0-0.4); Eosinophils Percent Auto 2.2 % (0-4); Hematocrit 45.9 % (42.0-52.0); Hemoglobin 15.7 g/dl (14.0-18.0); Imm Gran Abs Auto 0.02 X10*3/uL (0.00-0.03); Imm Gran Pct Auto 0.4 % (0.0-0.4); Lymphocytes Absolute Auto 1.5 X10*3/uL (1.2-4.9); Lymphocytes Percent Auto 32.2 % (20-40); Mean Corpuscular HGB Conc 34.2 g/dl (31.0-36.0); Mean Corpuscular Hemoglobin 31.7 pg (27.0-33.0); Mean Corpuscular Volume 92.5 fL (80.0-98.0); Monocytes Absolute Auto 0.3 X10*3/uL (0.1-1.2); Monocytes Percent Auto 7.5 % (2-11); Neutrophils Absolute Auto 2.6 x10*3/uL (2.0-8.3); Neutrophils Percent Auto 57.5 % (45-73); Platelet Count 172 X10*3/uL (160-400); Red Blood Count 4.96 X10*6/uL (4.60-5.80); Red Cell Distribution Width 12.9 % (11.0-16.0); White Blood Count 4.5 X10*3/uL (4.8-10.8)
[2025-04-01 13:35] LABS: Alanine Aminotransferase 34 U/L (0-40); Albumin Level 4.7 g/dL (3.5-5.0); Alkaline Phosphatase 66 U/L (39-117); Anion Gap 10 (12-20); Aspartate Amino Transferase 28 U/L (5-37); Bilirubin Direct 0.2 mg/dL (0.0-0.5); Bilirubin Total 0.6 mg/dL (0.0-1.0); Blood Urea Nitrogen 13 mg/dL (9-16); Calcium 9.6 mg/dL (8.4-10.2); Carbon Dioxide 26 mmol/L (22-29); Chloride 110 mmol/L (96-108); Creatinine Clr Calc Pharmacy 140.2; Estimated Glomerular Filt Rate > 60; Glucose Random 111 mg/dL (60-115); Magnesium 1.9 mg/dL (1.6-2.6); Potassium 4.6 mmol/L (3.3-5.1); Sodium 141 mmol/L (135-145); Total Protein 7.5 g/dL (6.5-8.0)
[2025-04-01 14:17] LABS: Influenza A PCR NEGATIVE (Negative); Influenza B PCR NEGATIVE (Negative); Resp Syncy Virus RNA Qual PCR NEGATIVE (Negative); SARS COV2 PCR INHOUSE POSITIVE (Negative)
[2025-04-01 15:50] VITALS: BP 112/62; PULSE 77; RESP 15; TEMP 36.9; O2SAT 100
[2025-04-01] MEDS: Ketorolac Tromethamine 15 MG/ML VIAL 30 MG IVPUSH (16:59)
[2025-04-01] MEDS: oxyCODONE HCl Immed Release 5 MG TABLET 10 MG PO (17:08)
[2025-04-01 17:26] LABS: Appearance Urine Clear; Color Urine Yellow; Glucose Urine UA Negative (Negative); Leukocyte Esterase Urine Negative (Negative); Nitrite Urine Negative (Negative); PH 5.5 (5.0-9.0); Specific Gravity - Urine 1.015 (1.005-1.025); Urine Blood Negative (Negative); Urine Ketones Negative (Negative); Urine Protein Negative (Neg-Trace)
[2025-04-01 17:35] VITALS: BP 121/59; PULSE 80; RESP 18; TEMP 36.9; O2SAT 99
== END 2025-04-01 17:39 | disposition home or self-care (01) ==
PROVIDERS: Physician Assistant; Emergency Provider Emergency Medicine Emergency Medical Services; PCP Dentist General Practice
DX: U07.1 COVID-19 (principal); R56.9 Unspecified convulsions; M54.2 Cervicalgia; M54.50 Low back pain, unspecified; M25.511 Pain in right shoulder; R51.9 Headache, unspecified; R05.9 Cough, unspecified; Z79.899 Other long term (current) drug therapy
CPT/HCPCS: 0241U; 70450; 72125; 73030; 80048; 80076; 81003; 83735; 85025; 93005; 96374; 99284; 99285; J1885

== ENCOUNTER → 2025-04-01 12:52 | Outpatient (BNV) | payer SELFPAY | PROVIDERS: Emergency Provider Emergency Medicine Emergency Medical Services; PCP Dentist General Practice; Visit Provider Internal Medicine | DX: R56.9 Unspecified convulsions (principal) | CPT/HCPCS: 93010 ==

== ENCOUNTER → 2025-04-01 12:54 | Outpatient (BNV) | payer MEDICAID, SELFPAY | PROVIDERS: PCP Dentist General Practice; Visit Provider Radiology Diagnostic Radiology | DX: M54.2 Cervicalgia (principal); S09.90XA Unspecified injury of head, initial encounter; R56.9 Unspecified convulsions; W19.XXXA Unspecified fall, initial encounter | CPT/HCPCS: 70450; 72125; 73030 ==

== ENCOUNTER 2025-08-24 11:39 | Emergency (ER) | payer OTHER, SELFPAY ==
--- NOTE | ~2025-08-24 | US_ITS ---
EXAMINATION: US ABDOMEN LIMITED CLINICAL INFORMATION: Right upper quadrant pain, increased bilirubin. COMPARISON: None available. TECHNIQUE: Real-time imaging of the right upper quadrant abdominal viscera. FINDINGS: PANCREAS: Obscured by bowel gas LIVER: The liver is normal in size. The liver contour is normal. Parenchymal echogenicity is normal. No focal hepatic lesion. There is no intrahepatic biliary duct dilatation seen. GALLBLADDER: Surgically absent. COMMON BILE DUCT: Normal in caliber measuring 0.3 cm in diameter. RIGHT KIDNEY: No hydronephrosis. No renal calculi or focal parenchymal lesions. The kidney measures 10.1 cm in maximum dimension. FREE FLUID: None. US/US abdomen limited IMPRESSION: Cholecystectomy, otherwise unremarkable. Electronically signed by: Pj Douglas MD 08/24/2025 03:14 PM EDT
--- NOTE | ~2025-08-24 | XR_ITS ---
EXAMINATION: XR CHEST CLINICAL INFORMATION: couging. pneumonia? COMPARISON: X-ray 03/22/2025 TECHNIQUE: Frontal view of the chest was obtained. FINDINGS: The cardiomediastinal silhouette is within normal limits. The lungs are well expanded. There is no focal consolidation, edema, or effusion. No pneumothorax. No acute osseous abnormality. XR/XR chest 1V IMPRESSION: No evidence of focal consolidation. Electronically signed by: Josue Burkett MD 08/24/2025 12:15 PM EDT
[2025-08-24 11:50] VITALS: BP 119/76; PULSE 106; RESP 18; TEMP 36.7; O2SAT 99; BMI 28.6
--- NOTE | 2025-08-24 11:58 | ED_ITS ---
HPI - General Adult General Chief complaint: Upper Respiratory Symptoms Stated complaint: Asthma Shortness Of Breath Time Seen by Provider: 08/24/25 12:05 Source: patient, RN notes reviewed and old records reviewed Mode of arrival: ambulatory Limitations: no limitations History of Present Illness ED Provider: CJ Marley HPI narrative: 30-year-old male with medical history of asthma presents to the ED due to cough, nasal congestion, sore throat, abdominal pain, vomiting, diarrhea. Patient reports 2 weeks of cough with mild phlegm production and nasal congestion, 3 days of sore throat and abdominal pain, diarrhea and vomiting that began last night. Patient reports nasal congestion is causing him to breath through is mouth at night making sore throat worse. Patient states he has history of asthma but does not have inhaler. Denies sick contacts MD complaint: flu like symptoms Related Data Previous Rx's ?Medication ?Instructions ?Recorded cyclobenzaprine 10 mg tablet 10 mg PO TID #10 tabs naproxen 500 mg tablet (Naprosyn) 500 mg PO BID #20 ta bs 07/22/24 albuterol sulfate 90 mcg/actuation 2 puff inhalation Q 4-6H PRN 03/22/25 aerosol inhaler shortness of breath or wheez ing #6.7 grams benzonatate 100 mg capsule 100 mg PO TID PRN cough #20 caps 03/22/25 prednisone 20 mg tablet 20 mg PO DAILY #5 tabs 03/22 cyclobenzaprine 10 mg tablet 10 mg PO TID PRN pain, mu scle 04/01/25 spasm #15 tabs oxcarbazepine 150 mg tablet 150 mg PO DAILY #30 tabs 0 04/01/25 oxycodone 5 mg tablet 5 mg PO Q4H PRN pain #12 tab s 04/01/25 benzonatate 100 mg capsule 100 mg PO BID PRN cough #10 caps 08/24/25 ondansetron HCl 4 mg tablet 4 mg PO DAILY PRN nausea a nd 08/24/25 vomiting 4 days #6 tabs prednisone 20 mg tablet 20 mg PO BID 5 days #10 tabs 08/24/25 Allergies Allergy/AdvReac Type Severity Reaction Status Date / Time No Known Allergies Allergy Verified 08/24/25 11:54 [facility] Past Medical History Attestation statement: The following information was validated with the patient. Source: old records reviewed and nursing notes reviewed Social History Social History Advance Directives: No Advance Directives Information Provided: Yes Do you have a plan to hurt others: No Plan Physical Exam ED Vital Signs: Vital Signs - 24 hr 08/24/25 14:05 08/24/25 14:46 08/24/25 16:16 Temperature 99.4 F 98.9 F Pulse Rate 84 90 80 Respiratory Rate 16 16 16 Blood Pressure 138/77 111/65 Pulse Oximetry 100 99 Oxygen Delivery Method Room Air Room Air 08/24/25 16:22 Temperature 98.9 F Pulse Rate 80 Respiratory Rate 16 Blood Pressure 111/65 Pulse Oximetry 99 Oxygen Delivery Method Room Air BMI result Body Mass Index 28.6 GENERAL APPEARANCE: ?AxOx4, generally well-appearing, no acute distress. HEENT: ?NC, AT. MMM. EOMI, clear conjunctiva, oropharynx clear. NECK: ?Supple without lymphadenopathy.? No stiffness or restricted ROM. HEART:? Normal rate and regular rhythm, normal S1/S2, no m/r/g LUNGS:? CTAB, moving air well. No crackles or wheezes are heard. ABDOMEN: ?Soft, nondistended, no rigidity, no guarding, TTP of the right upper quadrant, no overlying skin changes BACK: No CVAT, no obvious deformity. EXTREMITIES: ?Without cyanosis, clubbing or edema. NEUROLOGICAL: ?Grossly nonfocal. Alert and oriented, moving all 4 extremities. Observed to ambulate with normal gait. Skin: ?Warm and dry without any rash. Course Course Course Narrative: RME: 30-year-old male history of asthma presents to ED for 2 weeks of coughing and shortness of breath. Patient states feeling fatigued and coughing sore throat and vomiting. Xrays swabs ordered Medications Administered Discontinued Medications Generic Name Dose Route Start Last Admin Trade Name Freq PRN Reason Stop Dose Admin Albuterol Sulfate 4 puff 08/24/25 13:58 08/24/25 14:04 Albuterol Sulfate 90 Mcg 8 Gm Inhaler INHALE 08/24/25 13:59 4 puff ONCE ONE Administration Lactated Ringer's 1,000 mls @ 999 mls/hr 08/24/25 13:42 08/24/25 14:45 Lr IV 08/24/25 14:42 999 mls/hr .Q1H1M ONE Administration Acetaminophen 1,000 mg in 100 mls @ 400 mls/hr 08/24/25 13:42 08/24/25 16:15 Ofirmev IV 08/24/25 13:56 Infused ONCE ONE Infusion Ketorolac Tromethamine 15 mg 08/24/25 13:42 08/24/25 14:42 Ketorolac Tromethamine 15 Mg/Ml Vial IVPUSH 08/24/25 13:43 15 mg ONCE ONE Administration Ondansetron HCl 4 mg 08/24/25 15:45 08/24/25 16:14 Ondansetron Hcl 4 Mg/2 Ml Vial IVPUSH 08/24/25 15:46 4 mg ONCE ONE Administration Medical Decision Making Medical Decision Making [facility] Narrative: 30-year-old male with medical history of asthma presents to the ED due to cough, nasal congestion, sore throat, abdominal pain, vomiting, diarrhea. Patient reports 2 weeks of cough with mild phlegm production and nasal congestion, 3 days of sore throat and abdominal pain, diarrhea and vomiting that began last night. Patient reports nasal congestion is causing him to breath through is mouth at night making sore throat worse. Patient states he has history of asthma but does not have inhaler. VS on initial observation-BP 119/76, pulse rate of 106, respiratory rate of 18, afebrile with oral temp of 98.1, O2 saturation 99% on room air. On physical exam oropharynx with mild erythema, uvula midline, no uvular edema, no tonsilar edema or exudates noted, lungs clear to auscultation bilaterally, no expiratory wheeze noted, cardiac exam reveals normal rate and rhythm without murmurs/rubs/gallops, abdomen is soft, nondistended, no rigidity, with significant right upper quadrant pain to palpation, however patient is without gallbladder, no lower extremity edema Labs without leukocytosis/leukopenia, H&H stable, mild transaminitis with AST of 38, ALT of 52 and a total bilirubin of 1.1. US abdomen negative for intrahepatic biliary duct dilation Patient presents with generalized viral symptoms including , malaise, myalgias, congestion, cough, vomiting and diarrhea. Differential diagnosis considered included influenza, COVID-19, RSV, adenovirus, streptococcal pharyngitis, pneumonia. Patient appears non-toxic, hemodynamically stable. No meningeal signs, respiratory distress, hypoxia, or altered mental status. Patient without leukocytosis/leukopenia. Low suspicion for bacterial illness at this time, symptoms are most likely due to viral illness. Patient will be discharged with 5 day course of 40 mg prednisone, Zofran for nausea, and Tessalon pearls. Patient counseled on hydration, rest, and OTC symptom control with tylenol, ibuprofen, saline nasal spray, flonase, and humidifier. I counseled patient to follow up with PCP to ensure resolution of symptoms and to follow up for transaminitis, elevated bilirubin, and Strict return precautions. Patient is in agreement with the plan. VS on reexamination-BP 138/77, pulse rate of 90, respiratory rate of 16, oral temperature of 99.4?, O2 saturation 100% on room air. Differential Diagnosis Differential Diagnoses: The differential diagnosis associated with the presentation includes COVID Flu RSV Adenovirus Pharyngitis Pneumonia Viral illness Admission/Observation Consideration of admission/observation: Escalation of care including admission/observation considered Lab Data MDM Lab Attestation statement: I reviewed the patient's lab results. 08/24/25 12:24 08/24/25 12:24 Labs: Lab Results 08/24/25 Range/Units 12:24 WBC 7.6 (4.8-10.8) X10*3/uL RBC 5.05 (4.60-5.80) X10*6/uL Hgb 15.8 (14.0-18.0) g/dl Hct 46.4 (42.0-52.0) % MCV 91.9 (80.0-98.0) fL MCH 31.3 (27.0-33.0) pg MCHC 34.1 (31.0-36.0) g/dl RDW 12.6 (11.0-16.0) % Plt Count 158 L (160-400) X10*3/uL MPV 12.4 (9.4-12.4) fL Immature Gran % (Auto) 0.3 (0.0-0.4) % Neut % (Auto) 79.7 H (45-73) % Lymph % (Auto) 12.8 L (20-40) % Hidalgo % (Auto) 6.1 (2-11) % Eos % (Auto) 0.8 (0-4) % Baso % (Auto) 0.3 (0-2) % Lymph # (Auto) 1.0 L (1.2-4.9) X10*3/uL Hidalgo # (Auto) 0.5 (0.1-1.2) X10*3/uL Eos # (Auto) 0.1 (0.0-0.4) X10*3/uL Baso # (Auto) 0.0 (0.0-0.2) X10*3/uL Abs Immat Gran (auto) 0.02 (0.00-0.03) X10*3/uL Absolute Neuts (auto) 6.1 (2.0-8.3) x10*3/uL Absolute Nucleated RBC 0.000 (0.0-0.012) X10*3/uL Nucleated RBC % (auto) 0.0 (0.0-0.2) /100WBC Sodium 139 (135-145) mmol/L Potassium 3.7 (3.3-5.1) mmol/L Chloride 108 (96-108) mmol/L Carbon Dioxide 23 (22-29) mmol/L Anion Gap 12 (12-20) BUN 10 (9-16) mg/dL Creatinine 0.81 (0.5-1.4) mg/dL Estim Creat Clear Calc 156.9 Estimated GFR > 60 Random Glucose 110 (60-115) mg/dL Calcium 9.3 (8.4-10.2) mg/dL Magnesium 1.8 (1.6-2.6) mg/dL Total Bilirubin 1.1 H (0.0-1.0) mg/dL AST 38 H (5-37) U/L ALT 52 H (0-40) U/L Alkaline Phosphatase 69 (39-117) U/L Total Protein 7.6 (6.5-8.0) g/dL Albumin 4.8 (3.5-5.0) g/dL Lipase 12 (8-78) U/L COVID-19 (BRYSON) Negative (Negative) COVID-19 Clin Com See Note Influenza Type A (REHANA) Negative (Negative) Influenza Type B (REHANA) Negative (Negative) Influenza A & B Note See Note S. pyogenes GrpA REHANA Negative (Negative) Independent Interpretation I performed an independent interpretation of an: Plain X-Ray and Ultrasound Interpretation: I personally interpreted the CXR which was negative for focal consolidations, infiltrates, pneumothorax, cardiomegaly, I agree with the radiologist's interpretation I personally interpreted the abdomen ultrasound which was negative for dilation of bile ducts, I agree with the radiologist's interpretation Radiology Impression Discussion of test interpretation with radiology: I have reviewed the radiologist's reading. Radiologist Impression: CXR FINDINGS: The cardiomediastinal silhouette is within normal limits. The lungs are well expanded. There is no focal consolidation, edema, or effusion. No pneumothorax. No acute osseous abnormality. XR/XR chest 1V IMPRESSION: No evidence of focal consolidation. Electronically signed by: Josue Burkett MD 08/24/2025 12:15 PM EDT Dictated By: Josue Burkett MD Signed By: <Electronically signed by Josue Burkett MD in OV> 08/24/25 1215 Ultrasound abdomen FINDINGS: PANCREAS: Obscured by bowel gas LIVER: The liver is normal in size. The liver contour is normal. Parenchymal echogenicity is normal. No focal hepatic lesion. There is no intrahepatic biliary duct dilatation seen. GALLBLADDER: Surgically absent. COMMON BILE DUCT: Normal in caliber measuring 0.3 cm in diameter. RIGHT KIDNEY: No hydronephrosis. No renal calculi or focal parenchymal lesions. The kidney measures 10.1 cm in maximum dimension. FREE FLUID: None. US/US abdomen limited IMPRESSION: Cholecystectomy, otherwise unremarkable. Electronically signed by: Pj Douglas MD 08/24/2025 03:14 PM EDT RP Dictated By: Pj Douglas MD Signed By: <Electronically signed by Pj Douglas MD in [facility]> 08/24/25 1514 External Record Review External record reviewed: Inpatient record, Office record and Outpatient record Prescription Management I considered prescription management with: Antibiotic (I considered antibiotics however symptoms are more consistent with viral illness, no antibiotics indicated at this time.) Chronic Conditions Patient?s care impacted by: Other (Asthma) Discharge Plan Discharge Clinical Impression: Viral infection Patient Disposition: Home, Self-Care Additional Instructions: You were evaluated in the ED due to flu-like symptoms. Your blood work was reassuring, however you do have a mild elevation in your bilirubin. Your chest x-ray was negative for pneumonia. The ultrasound of your abdomen was normal. Your COVID, flu, and strep tests were negative today. Your symptoms are most likely due to a viral illness. Please ensure you were taking 500 mg of Tylenol, 400 mg of ibuprofen every 6 hours, staying hydrated with water, Gatorade, and eating a bland diet until your symptoms resolve. You may have a decreased appetite over the next 3-5 days, this is normal. You are being prescribed a 5 day course of 40 mg prednisone and tessalon pearls for inflammation and cough. Please follow up with your primary care provider to ensure resolution of your symptoms. Please return to the emergency department if you experience fevers over 100.4? that are not managed by Tylenol/Motrin, worsening cough, or any new/worsening/concerning symptoms. Prescriptions: New prednisone 20 mg tablet 20 mg PO BID 5 Days Qty: 10 0RF benzonatate 100 mg capsule 100 mg PO BID PRN (Reason: cough) Qty: 10 0RF ondansetron HCl 4 mg tablet 4 mg PO DAILY PRN (Reason: nausea and vomiting) 4 Days Qty: 6 0RF No Action cyclobenzaprine 10 mg tablet 10 mg PO TID Qty: 10 0RF naproxen [Naprosyn] 500 mg tablet 500 mg PO BID Qty: 20 0RF cyclobenzaprine 10 mg tablet 10 mg PO TID PRN (Reason: pain, muscle spasm) Qty: 15 0RF oxycodone 5 mg tablet 5 mg PO Q4H PRN (Reason: pain) Qty: 12 0RF Rx Instructions: Partial Fill upon patient request. oxcarbazepine 150 mg tablet 150 mg PO DAILY Qty: 30 0RF albuterol sulfate 90 mcg/actuation HFA aerosol inhaler 2 puff inhalation Q4-6H PRN (Reason: shortness of breath or wheezing) Qty: 6.7 0RF prednisone 20 mg tablet 20 mg PO DAILY Qty: 5 0RF benzonatate 100 mg capsule 100 mg PO TID PRN (Reason: cough) Qty: 20 0RF Stand Alone Forms: Work/School Release Interventions: ED Discharge Assessment Last Done: 08/24/25 16:22 Discharge Date/Time: 08/24/25 16:22 Print Language: Sammarinese
[2025-08-24 12:28] VITALS: O2SAT 99
[2025-08-24 12:29] LABS: MANUAL DIFF FLAG NO
[2025-08-24 12:36] LABS: Hematocrit 46.4 % (42.0-52.0); Hemoglobin 15.8 g/dl (14.0-18.0); Imm Gran Abs Auto 0.02 X10*3/uL (0.00-0.03); Imm Gran Pct Auto 0.3 % (0.0-0.4); Lymphocytes Absolute Auto 1.0 X10*3/uL (1.2-4.9); Mean Corpuscular HGB Conc 34.1 g/dl (31.0-36.0); Mean Corpuscular Hemoglobin 31.3 pg (27.0-33.0); Mean Corpuscular Volume 91.9 fL (80.0-98.0); NRBC Abs Auto 0.000 X10*3/uL (0.0-0.012); NRBC Pct Auto 0.0 /100WBC (0.0-0.2); Platelet Count 158 X10*3/uL (160-400); Red Blood Count 5.05 X10*6/uL (4.60-5.80); White Blood Count 7.6 X10*3/uL (4.8-10.8)
[2025-08-24 12:46] LABS: IDNOW Serial# 08D9AD1C; IDNOW Serial# 55D5AD1C; Influenza B2 Negative (Negative); Strep A Nucleic Acid Negative (Negative)
[2025-08-24 12:50] LABS: COVID-19 Test Negative (Negative); IDNOW Serial# 58CA691E
[2025-08-24 12:53] LABS: Alanine Aminotransferase 52 U/L (0-40); Albumin Level 4.8 g/dL (3.5-5.0); Alkaline Phosphatase 69 U/L (39-117); Anion Gap 12 (12-20); Aspartate Amino Transferase 38 U/L (5-37); Blood Urea Nitrogen 10 mg/dL (9-16); Calcium 9.3 mg/dL (8.4-10.2); Carbon Dioxide 23 mmol/L (22-29); Chloride 108 mmol/L (96-108); Creatinine Clr Calc Pharmacy 156.9; Estimated Glomerular Filt Rate > 60; Magnesium 1.8 mg/dL (1.6-2.6); Potassium 3.7 mmol/L (3.3-5.1); Sodium 139 mmol/L (135-145); Total Protein 7.6 g/dL (6.5-8.0)
[2025-08-24] MEDS: Albuterol Sulfate 90 MCG 8 GM INHALER 4 PUFF INHALE (14:04)
[2025-08-24 14:05] VITALS: PULSE 84; RESP 16; O2SAT 100
[2025-08-24] MEDS: Lactated Ringers 1,000 ML 999 ML IV (14:45)
[2025-08-24 14:46] VITALS: BP 138/77; PULSE 90; RESP 16; TEMP 37.4; O2SAT 100
--- OUTSIDE RECORDS SUMMARY | 2025-08-24 15:30 | XMS_ITS | Clinical Summary ---
Author Organization [facility] Address [address] [place] [id number] Phone Care Team Providers Care Harvest Worker Name Role Phone Pcp, Unknown Primary Care Provider Unavailabl e Allergies No known active allergies Medications phenytoin (DILANTIN) 100 MG ER capsule Take 200 mg by mouth daily. Active OXcarbazepine (TRILEPTAL) 300 MG tablet Take 750 mg by mouth 2 (two) times a day. Last filled in May at [facility] - 150 mg BID to be taken with 300 mg for a total of 900 mg. 300 mg prescription not filled Active Social History Tobacco Use Types Packs/Day Years Used Date Smoking Tobacco: Never Assessed Education Answer Date Recorded Are you interested in more education? Not on gilberto e 08/09/2023 Are you concerned about learning? Not on file 08/09/2023 No 08/09/2023 No 08/09/2023 Digital Access Answer Date Recorded No 08/09/2023 No 08/09/2023 Reliable internet access at home? Not on file 08/09/2023 Device with a working camera? Not on file Intimate Partner Violence Answer Date R ecorded Are you denied basic needs s uch as food, clothing, or medical care? No 08/09/2023 In the past 12 months have y ou been in a relationship with a person who hurts, threatens, or tries to control you? No 08/09/2023 Are you denied basic needs s uch as food, clothing, or medical care? No 08/09/2023 In the past 12 months have y ou been in a relationship with a person who hurts, threatens, or tries to control you? No 08/09/2023 Sex and Gender Information Value Date Recorded Sex Assigned at Male 08/09/2023 2:59 PM EDT Legal Sex Male 2:37 PM EDT Gender Identity Male 08/09/2023 2:59 PM EDT Sexual Orientation Not on file Last Filed Vital Signs Vital Sign Reading Time Taken Comments Blood Pressure 100/62 08/09/2023 5:11 PM EDT Pulse 70 08/09/2023 5:11 PM EDT Temperature 36.6 C (97.9 F) 08/09/2023 5:11 PM EDT Respiratory Rate 18 08/09/2023 5:11 PM EDT Oxygen Saturation 99% 08/09/2023 5:11 PM EDT Inhaled Oxygen Concentration - - Weight 81.2 kg (179 lb) 08/09/2023 2:58 PM EDT Height 182.9 cm (6') 08/09/2023 2:58 PM EDT Body Mass Index 24.28 08/09/2023 2:58 PM EDT Plan of Treatment Health Maintenance Due Date Last Done Comments Adult Td,Tdap Booster 1993 PHENYTOIN (DILANTIN) LEVEL 1993 DEPRESSION SCREENING 2005 SMOKING Hx and SMOKELESS TOB ACCO SCREENING 2006 HIV ONE-TIME SCREENING (18-6 5 YEARS) 2011 INFLUENZA VACCINE (#1) 2025 COVID-19 VACCINE ( - 2024-2 6 season) 2025 HEPATITIS C SCREENING Completed 05/21/2023 HEPATITIS A VACCINES Aged Out No long er eligible based on patient's age to complete this topic HIB VACCINES Aged Out No longer eligi ble based on patient's age to complete this topic MENINGOCOCCAL VACCINES (ACWY) Aged Out No longer eligible based on patient's age to complete this topic MENINGOCOCCAL VACCINES (B) Aged Out N o longer eligible based on patient's age to complete this topic PNEUMOCOCCAL VACCINES (0-49 years) Aged Out No longer eligible based on patient's age to complete this topic Medical Devices Not on file Insurance [address] [employer] [address] [place] [address] [employer] [employer] [address] [place] [address] [employer] [address] [employer] [address] [place] [address] [employer] Care Teams Harvest Worker Relationship Specialty Start Date End Date Pcp, Unknown PCP - General 08/09/23 Additional Source Comments The information contained in this document represents components of the legal health record. It is not the complete legal health record.[facility]
--- OUTSIDE RECORDS SUMMARY | 2025-08-24 15:30 | XMS_ITS | Clinical Summary ---
Author Organization [facility] Address [address] [place] [address] Care Team Providers Care Skein Spooler Name Role Phone Luis Fernando Jaimie DIANA Primary Care Provider Source Comments PLEASE NOTE, if this patient is a minor, it may be UNLAWFUL to discuss sensitive information that is contained in these records (such as FAMILY PLANNING, MENTAL HEALTH or SUBSTANCE ABUSE) with the minor patient's parent or other person without the patient's specific authorization.[facility] Allergies Active Allergy Reactions Criticality Noted Date Comments Eggs Rash,Nausea and Vomiting 12/24/2022 Medications naloxone (NARCAN) 4 mg/actuation nasal sprayIndications:Op ioid use disorder Please use as needed for concern of overdose 2 Each 2 3 Active OXcarbazepine (TRILEPTAL) 600 mg tabletIndications:G rand mal seizure disorder Take 1 Tablet by mouth 2 (two) times daily Take with 150mg tab with a TDD of 1500 mg 180 Tablet 3 4 Active phenytoin ER (DILANTIN) 100 mg ER capsuleIndications: Grand mal seizure disorder Take 2 Capsules by mouth daily 180 Capsule 3 4 Active amitriptyline (ELAVIL) 10 mg tabletIndications:G eneralized anxiety disorder Take 1 Tablet by mouth nightly at bedtime 90 Tablet 3 4 Active busPIRone (BUSPAR) 15 mg tabletIndications:G eneralized anxiety disorder Take 1 Tablet by mouth 3 (three) times daily for 90 days 90 Tablet 2 4 Active hydrOXYzine pamoate (VISTARIL) 50 mg capsuleIndications: Generalized anxiety disorder Take 1 Capsule by mouth nightly at bedtime 90 Capsule 3 4 Active sertraline (ZOLOFT) 50 mg tabletIndications:G eneralized anxiety disorder Take 1 Tablet by mouth once daily Take with 25mg tab for TDD of 75mg 90 Tablet 3 4 Active methocarbamoL (ROBAXIN) 750 mg tabletIndications:N darcy pain Take 1 Tablet by mouth 3 (three) times daily 30 Tablet 4 Active ondansetron ODT (ZOFRAN-ODT) 8 mg disintegrating tabletIndications:N ausea and vomiting, unspecified vomiting type Take 1 Tablet by mouth 2 (two) times daily as needed for nausea 60 Tablet 5 Active loperamide (IMODIUM) 2 mg capsuleIndications: Diarrhea, unspecified type Take 1 Capsule by mouth 4 (four) times daily as needed for diarrhea 90 Capsule 5 Active OXcarbazepine (TRILEPTAL) 150 mg tabletIndications:G rand mal seizure disorder Take 1 Tablet by mouth 2 (two) times daily Take with 600mg tab with a TDD of 1500mg 180 Tablet 3 5 Active oxyCODONE-acetamino phen (PERCOCET) 7.5-325 mg per tabletIndications:G allstones Take 1 Tablet by mouth every 8 (eight) hours as needed for pain 30 Tablet 5 Active Active Problems Problem Noted Date Diagnosed Date Food insecurity 01/27/2025 Financial difficulties 01/27/2025 Severe episode of recurrent major depressive disorder, with psychotic features 04/26/2024 Opioid use disorder, severe, in sustained remiss ion 04/26/2024 Generalized tonic-clonic seizure 04/16/2024 Overview (06/08/2024): [facility] 05/2024: ambulatory EEG and MRI, continue Valproic acid and Oxcarbazepine Last seizure March 2024 requiring ER visit Not driving Other specified anxiety disorder 04/16/2024 Social History Tobacco Use Types Packs/Day Years Used Date Smoking Tobacco: Every Day Cigarettes Passive Smoke Exposure: Never Smokeless Tobacco: Never Tobacco Cessation:Ready to Q uit: Not Asked; Counseling Given: Not Answered Alcohol Use Standard Drinks/Week Comments Not Currently 0 (1 standard drink = 0.6 oz pur e alcohol) Social Connections Answer Date Recorded How often do you feel lonely or isolated from th ose around you? 1 01/27/2025 Financial Resource Strain Answer Date R ecorded Hard to pay for: Food 2 01/27/2025 Stress Answer Date Recorded Do you feel these kinds of stress these days? 1 01/27/2025 Physical Activity Answer Date Recorded Physical Activity 0 11/13/2022 Food Insecurity Answer Date Recorded Hard to pay for: Food 2 01/27/2025 Transportation Needs Answer Date Record ed Hard to pay for: Transportation 1 01/27/2025 Housing Stability Answer Date Recorded Hard to pay for: Rent/Mortgage payment 1 01/27/2025 Safety and Environment Answer Date Clive rded Safety 0 11/13/2022 Utilities Answer Date Recorded Hard to pay for: Utilities 1 01/27 Employment Answer Date Recorded Stress 0 07/11/2024 Sex and Gender Information Value Date Recorded Sex Assigned at Male 05/17/2023 7:52 AM PDT Legal Sex Male 1:08 PM PST Gender Identity Male 05/17/2023 7:52 AM PDT Sexual Orientation Straight 05/17/2023 7: 52 AM PDT Last Filed Vital Signs Vital Sign Reading Time Taken Comments Blood Pressure 116/70 01/07/2025 11:23 AM EDT Pulse 77 01/07/2025 11:23 AM EDT Temperature 36.8 C (98.3 F) 01/07/2025 11:23 AM EDT Respiratory Rate 18 01/07/2025 11:23 AM EDT Oxygen Saturation 98% 07/24/2024 1:54 PM EDT Inhaled Oxygen Concentration - - Weight 97.5 kg (215 lb) 01/07/2025 11:23 AM EDT Height 182.9 cm (6') 01/07/2025 11:23 AM EDT Body Mass Index 29.16 01/07/2025 11:23 AM EDT Plan of Treatment Upcoming Encounters Date Type Department Care Team (Late st Contact Info) Description 09/17/2025 10:20 AM EST Office Visit [facility] [address] [place] [address] Jaimie Gould FNP [address] [place] [address] Health Maintenance Due Date Last Done Comments Imm-DTaP/Tdap/Td (1 - Tdap) 2012 Imm-Hepatitis B (1 of 3 - 19 + 3-dose series) 2012 Imm-Pneumococcal (1 of 2 - PCV) 2012 Imm-HPV (1 - 3-dose SCDM series) 2020 Depression Monitoring 07/17/2024 04/16/2024 Alcohol and Drug Screen 10/28/2024 04/16/2024 Urine Drug Screen 11/04/2024 11/04/2023, , 11/04/2023, Additional history exists Tobacco Cessation Counseling (#1) 04/16/2025 Anxiety Screening 04/20/2025 04/20/2024 [id number] (2024- season) 2025 Imm-Influenza (#1) 2025 Hypertension Screening (#1) 01/07/2026 HIV Screening Completed 05/21/2023, 05/21/2023 Hepatitis C Screening Completed 05/21/2023, 023 Procedures Procedure Name Priority Date/Time Associated Diagnosis Comments DRUG MONITORING, PANEL 8 WITH CONFIRMATION, URINE Routine 11/04/2023 11:54 AM EST Opioid use disorder HIV 1/2 AG & AB W/RFLX (4TH GEN) Routine 05/21/2023 9:32 AM EDT Possible exposure to STD HEPATITIS C AB W/RFLX HCV RNA, QT, RT PCR Routine 05/21/2023 9:29 AM EDT Opioid abuse ([facility]) from Last 3 Months or Most Recently Relevant to Health Maintenance Results * (ABNORMAL) DRUG MONITORING, PANEL 8 WITH CONFIRMATION, URINE (11/04/2023 11:54 AM EST) ALCOHOL METABOLITES NEGATIVE <500 [employer] [facility] AMPHETAMINES NEGATIVE <500 [employer] [facility] BENZODIAZEPINES NEGATIVE <100 [facility] [employer] [facility] BUPRENORPHINE NEGATIVE <5 [employer] [facility] COCAINE METABOLITE NEGATIVE <150 [facility] [employer] [facility] 6 ACETYLMORPHINE NEGATIVE <[address] [facility] [employer] [facility] MARIJUANA METABOLITE POSITIVE(A) <20 [employer] [facility] MEDMATCH MARIJUANA METAB PENDING niiu MARIJUANA METABOLITE 183(H) <5 ng/mL niiu MEDMATCH MARIJUANA METAB PENDING niiu Marijuana Comments See Note Q [facility] [employer] Comment:See Marijuana Notes, LDT Notes MDMA NEGATIVE <500 niiu OPIATES NEGATIVE <100 niiu OXYCODONE NEGATIVE <100 niiu CREATININE 128.2 > or = 20.0 mg/dL niiu PH 7.0 4.5 - 9.0 niiu OXIDANT NEGATIVE <200 [facility] Urine Urine specimen / Unknown 11/04/2023 11:54 AM EST 11/05/2023 3:42 AM EST us Theodore Kearney MD LAB URINE AMBULATORY Final Resul t [facility] [address] [address], [facility] [address] [place] [address] * HIV 1/2 AG & AB W/RFLX (4TH GEN) (05/21/2023 9:32 AM EDT) HIV AG/AB, 4TH GEN NON-REAC TIVE NON-REAC TIVE niiu Comment: HIV-1 antigen and HIV-1/HIV-2 antibodies were not detected. There is no laboratory evidence of HIV infection. PLEASE NOTE: This information has been disclosed to you from records whose confidentiality may be protected by state law. If your state requires such protection, then the state law prohibits you from making any further disclosure of the information without the specific written consent of the person to whom it pertains, or as otherwise permitted by law. A general authorization for the release of medical or other information is NOT sufficient for this purpose. For additional information please refer to http://education.cashcloud/faq/HLS675 (This link is being provided for informational/ educational purposes only.) The performance of this assay has not been clinically validated in patients less than 2 years old. Blood Blood / Unknown 05/21/2023 9 :32 AM EDT 05/21/2023 9:33 AM EDT Danny ORTIZ LAB - BLOOD DRAW Final Result Performing Organization Address City/[facility]/ZIP Co de Phone Number [facility] [address] [address], [facility] [address] [address] * HEPATITIS C AB W/RFLX HCV RNA, QT, RT PCR (05/21/2023 9:29 AM EDT) HEPATITIS C ANTIBODY NON-REACT KADEN NON-REACT KADEN [facility] Comment: HCV antibody was non-reactive. There is no laboratory evidence of HCV infection. In most cases, no further action is required. However, if recent HCV exposure is suspected, a test for HCV RNA (test code 30073) is suggested. For additional information please refer to http://education.cashcloud/faq/AAY06g0 (This link is being provided for informational/ educational purposes only.) Blood Blood / Unknown 05/21/2023 9 :29 AM EDT 05/21/2023 9:30 AM EDT Narrative [employer] [facility] - 05/27/2023 7:49 AM EDT FASTING:YES Theodore Kearney MD LAB - BLOOD DRAW Edited Result - Final [facility] [address] [address], [facility] [address] [address] from Last 3 Months or Most Recently Relevant to Health Maintenance Care Teams Skein Spooler Relationship Specialty Start Date End Date Jaimie Gould FNP [address] [place] [address] PCP - General Family Medicine, [facility] 08/11/25
[2025-08-24 16:16] VITALS: BP 111/65; PULSE 80; RESP 16; TEMP 37.2; O2SAT 99
[2025-08-24 16:19] LABS: Lipase 12 U/L (8-78)
[2025-08-24 16:22] VITALS: BP 111/65; PULSE 80; RESP 16; TEMP 37.2; O2SAT 99
== END 2025-08-24 16:22 | disposition home or self-care (01) ==
PROVIDERS: Physician Assistant; Emergency Provider Emergency Medicine; PCP Dentist General Practice
DX: B34.9 Viral infection, unspecified (principal); R05.9 Cough, unspecified; J02.9 Acute pharyngitis, unspecified; R10.11 Right upper quadrant pain; R11.10 Vomiting, unspecified; R19.7 Diarrhea, unspecified; Z03.818 Encounter for observation for suspected exposure to other biological agents ruled out
CPT/HCPCS: 36415; 71045; 76705; 80053; 83690; 83735; 85025; 87502; 87635; 87651; 94640; 96365; 96366; 96375; 99284; 99285; J0131; J1885; J2405; J7120

== ENCOUNTER → 2025-08-24 11:57 | Outpatient (BNV) | payer SELFPAY | PROVIDERS: Emergency Provider Emergency Medicine; PCP Dentist General Practice; Visit Provider Radiology Diagnostic Ultrasound | DX: R10.11 Right upper quadrant pain (principal); E80.7 Disorder of bilirubin metabolism, unspecified; Z90.49 Acquired absence of other specified parts of digestive tract; R05.9 Cough, unspecified | CPT/HCPCS: 71045; 76705 ==